=== PATIENT | male | born 1980 ===

== ENCOUNTER → 2021-01-17 08:48 | Outpatient (CLI) | payer OTHER | END | disposition home or self-care (01) | LOC: PPH VACUNA 08:48 | DX: Z23 Encounter for immunization (principal) ==

== ENCOUNTER → 2021-02-07 10:44 | Outpatient (CLI) | payer OTHER | END | disposition home or self-care (01) | LOC: PPH VACUNA 10:44 | DX: Z23 Encounter for immunization (principal) ==